=== PATIENT | male | born 1990 | race American Indian/Alaskan Native ===

== ENCOUNTER 2017-03-25 09:39 | Emergency (ER) | payer SELFPAY ==
--- NOTE | 2017-03-25 10:12 | Emergency Department Report ---
Chief Complaint: Extremity Injury, Lower Stated Complaint: SWOLLEN LEGS AND FEET Time Seen by Provider: 03/25/17 10:09 - HPI History of Present Illness: PT c/o leg edema x 6 months. PT states he noticed the swelling in his R leg first and now his left leg is swollen. - ROS Review of Systems: - sob - cp - Exam Physical Exam: obese male steady gait ble edema noted MSE screening note: Focused history and physical exam performed. Due to findings the following was ordered: labs ED Disposition for MSE Condition: Stable
[2017-03-25 10:26] LABS: Basophils % (Auto) 0.8 % (0.0-1.8); Eosinophils % (Auto) 3.6 % (0.0-4.3); Hematocrit 39.7 % (35.5-45.6); Hemoglobin 12.5 gm/dl (11.8-15.2); Mean Corpuscular HGB Conc 32 % (32-34); Mean Corpuscular Volume 79 fl (84-94); Platelet Count 267 K/mm3 (140-440); Red Cell Distribution Width 14.1 % (13.2-15.2); White Blood Count 5.6 K/mm3 (4.5-11.0)
[2017-03-25 10:29] LABS: Mean Corpuscular Hemoglobin 25 pg (28-32)
[2017-03-25 10:46] LABS: Alanine Aminotransferase 33 units/L (7-56); Albumin 3.9 g/dL (3.9-5); Albumin/Globulin Ratio 1.1 %; Alkaline Phosphatase 71 units/L (35-129); Anion Gap 15 mmol/L; BUN/Creatinine Ratio 8.18; Blood Urea Nitrogen 9 mg/dL (9-20); Calcium 8.8 mg/dL (8.4-10.2); Carbon Dioxide 28 mmol/L (22-30); Glucose 102 mg/dL (75-100); Sodium 142 mmol/L (137-145); Total Protein 7.5 g/dL (6.3-8.2)
--- NOTE | 2017-03-25 11:59 | Emergency Department Report ---
ED General Adult HPI - General Chief complaint: Extremity Injury, Lower Stated complaint: SWOLLEN LEGS AND FEET Time Seen by Provider: 03/25/17 10:09 Source: patient Mode of arrival: Ambulatory Limitations: No Limitations - History of Present Illness Initial comments: The patient complains of bilateral leg swelling since at least October. Apparently he has been working night shifts and his legs have recently become more tight. He does not specifically complain of calf or thigh pain just generalized weakness due to the swelling. He denies any shortness of breath. On my encounter. He was found sleeping remarkably without sleep apnea. He is morbidly obese. He denies any prior history of diabetes or hypertension. However it has been years since he has been to a physician or have his blood pressure measured. -: month(s) Location: lower extremity Radiation: non-radiation Severity scale (0 -10): 3 Quality: other (tightness) Consistency: constant Improves with: none Worsens with: none Associated Symptoms: denies other symptoms Treatments Prior to Arrival: none - Related Data Previous Rx's Medication Instructions Recorded Last Taken Type Lisinopril/Hydrochlorothiazide 1 tab PO QDAY #30 tablet 03/25/17 Unknown Rx [Zestoretic 10-12.5 mg] Allergies Allergy/AdvReac Type Severity Reaction Status Date / Time No Known Allergies Allergy Verified 03/25/17 10:14 ED Review of Systems ROS: Stated complaint: SWOLLEN LEGS AND FEET Other details as noted in HPI Constitutional: denies: chills, fever Eyes: denies: eye pain, eye discharge, vision change ENT: denies: ear pain, throat pain Respiratory: denies: cough, shortness of breath, wheezing Cardiovascular: edema. denies: chest pain, palpitations Endocrine: no symptoms reported Gastrointestinal: denies: abdominal pain, nausea, diarrhea Genitourinary: denies: urgency, dysuria Musculoskeletal: denies: back pain, joint swelling, arthralgia Skin: denies: rash, lesions Neurological: denies: headache, weakness, paresthesias Psychiatric: denies: anxiety, depression Hematological/Lymphatic: denies: easy bleeding, easy bruising ED Past Medical Hx - Past Medical History Previous Medical History?: No - Surgical History Past Surgical History?: No - Social History Smoking Status: Never Smoker Substance Use Type: None - Medications Home Medications: Home Medications Medication Instructions Recorded Confirmed Last Taken Type Lisinopril/Hydrochlorothiazide 1 tab PO QDAY #30 tablet 03/25/17 Unknown Rx [Zestoretic 10-12.5 mg] ED Physical Exam - General Limitations: Physical Limitation General appearance: alert, in no apparent distress - Head Head exam: Present: atraumatic, normocephalic - Eye Eye exam: Present: normal appearance, PERRL, EOMI. Absent: scleral icterus - ENT ENT exam: Present: mucous membranes moist - Neck Neck exam: Present: normal inspection - Respiratory Respiratory exam: Present: normal lung sounds bilaterally. Absent: respiratory distress - Cardiovascular Cardiovascular Exam: Present: regular rate, normal rhythm. Absent: systolic murmur, diastolic murmur, rubs, gallop - GI/Abdominal GI/Abdominal exam: Present: soft, normal bowel sounds. Absent: distended, tenderness, guarding, rebound - Rectal Rectal exam: Present: deferred - Extremities Exam Extremities exam: Present: normal inspection, other (3+ calf and pedal edema to the knees essentially bilaterally). Absent: calf tenderness - Back Exam Back exam: Present: normal inspection - Neurological Exam Neurological exam: Present: alert, oriented X3, CN II-XII intact. Absent: motor sensory deficit - Psychiatric Psychiatric exam: Present: normal affect, normal mood - Skin Skin exam: Present: warm, dry, intact, normal color. Absent: rash ED Course Vital Signs 03/25/17 03/25/17 10:11 11:33 Temperature 98.4 F Pulse Rate 104 H 88 Respiratory 18 20 Rate Blood Pressure 179/104 Blood Pressure 162/89 [Right] O2 Sat by Pulse 100 94 Oximetry ED Medical Decision Making - Lab Data Result diagrams: 03/25/17 10:17 03/25/17 10:17 Laboratory Results - last 24 hr 03/25/17 03/25/17 10:17 10:17 WBC 5.6 RBC 5.00 Hgb 12.5 Hct 39.7 MCV 79 L MCH 25 L MCHC 32 RDW 14.1 Plt Count 267 Lymph % (Auto) 28.8 [place] % (Auto) 8.4 H Eos % (Auto) 3.6 Baso % (Auto) 0.8 Lymph # 1.6 [place] # 0.5 Eos # 0.2 Baso # 0.0 Seg Neutrophils % 58.4 Seg Neutrophils # 3.3 Sodium 142 Potassium 4.0 Chloride 103.0 Carbon Dioxide 28 Anion Gap 15 BUN 9 Creatinine 1.1 Estimated GFR > 60 BUN/Creatinine Ratio 8.18 Glucose 102 H Calcium 8.8 Total Bilirubin 0.30 AST 28 ALT 33 Alkaline Phosphatase 71 NT-Pro-B Natriuret Pep 10.69 Total Protein 7.5 Albumin 3.9 Albumin/Globulin Ratio 1.1 - Radiology Data interpreted by me: VASCULAR LAB PRELIMINARY REPORT BLE VENOUS DOPPLER COMPLETED NO EVIDENCE OF DVT/SVT NOTED IN VESSELS/SEGMENTS VISUALIZED VERY LIMITED CALF VISUALIZATION DUE TO PT HABITUS AND EDEMA Critical care attestation.: If time is entered above; I have spent that time in minutes in the direct care of this critically ill patient, excluding procedure time. ED Disposition Clinical Impression: Leg edema Hypertension Qualifiers: Hypertension type: essential hypertension Qualified Code(s): I10 - Essential ( primary) hypertension Morbid obesity Qualifiers: Obesity type: due to excess calories Qualified Code(s): E66.01 - Morbid (severe ) obesity due to excess calories Disposition: TO HOME OR SELFCARE Is pt being admited?: No Does the pt Need Aspirin: No Condition: Stable Instructions: Hypertension (ED), Leg Edema (ED) Additional Instructions: Follow-up with primary care provider is really essential. Rx as directed for your hypertension and they will likely help leg swelling. Return any further symptoms thrush shortness of breath or worsening swelling. Prescriptions: Lisinopril/Hydrochlorothiazide [Zestoretic 10-12.5 mg] 1 tab PO QDAY #30 tablet Referrals: AKILA FABIAN MD [Primary Care Provider] - 3-5 Days [facility] [Provider Group] - 3-5 Days AUSTIN ALVARADO MD [Referring] - 3-5 Days Time of Disposition: 13:05
[2017-03-25 13:23] VITALS: BP 187/92
== END 2017-03-25 13:22 | disposition home or self-care (01) ==
LOC: ED 09:39
DX: R60.0 Localized edema (principal); I10 Essential (primary) hypertension; E66.01 Morbid (severe) obesity due to excess calories
CPT/HCPCS: 36415; 80053; 83880; 85025; 93970; 99284

== ENCOUNTER 2017-09-02 14:32 | Emergency (ER) | payer OTHER ==
[2017-09-02 14:45] VITALS: BP 191/114
--- NOTE | 2017-09-02 15:00 | Emergency Department Report ---
Chief Complaint: Syncope Stated Complaint: SYNCOPE - HPI History of Present Illness: This 27-year-old male nontoxic, well nourished in appearance, no acute signs of distress presents to the ED with c/o of headache, bilateral hip pain status post syncopal episode that occurred this morning. Initially he was cooking stove and lost consciousness and fell his head and is complaining of headache and bilateral hip pain. Phone number was currently present and stated patient has been down for about 2-3 minutes. Patient denies any dizziness, fever, chills, stiff neck, other extremity pain, nausea, vomiting, blurry vision, chest pain or shortness of breath. Denies hemoptysis. Denies any calf pain or tenderness. Denies recent travels, low chloride, or recent hospital stays. - Exam Vital Signs: Vital Signs 09/02/17 14:41 Temperature 97.7 F Pulse Rate 81 Respiratory 22 Rate Blood Pressure 191/114 O2 Sat by Pulse 97 Oximetry Physical Exam: GENERAL: The patient is a well-developed, well-nourished female in no apparent distress. Patient is alert and acting appropriately for age. Alert and oriented 3, no apparent distress, normal gait, atraumatic. LUNGS: Clear to auscultation. Non labor breathing. No intercostal retractions. Symmetrical with respiration, no wheezing, no rales, or crackles. HEART: Regular rate and rhythm without murmur, rubs or gallops. No reproducible. S1, S2 present, regular rate and rhythm without murmur, no rubs, no gallops. EXTREMITIES: Bilateral tenderness to the hips. Without any cyanosis, clubbing, rash, lesions or edema. Peripheral pulses intact. Capillary refill less than 2 seconds. Full range of motion bilaterally. NEUROLOGIC: Cranial nerves II through XII are grossly intact. Alert and oriented x 3. Normal gait. Symmetrical strength and sensation. Reflexes 2+ throughout. Cerebellar testing normal. GCS score of 15. MSE screening note: Focused history and physical exam performed. Due to findings the following was ordered: 1- This initial assessment/diagnostic orders/clinical plan/ treatment(s) is/are subject to change based on pt's health status, clinical progression and re- assessment by fellow clinical providers in the ED. Further treatment and workup at subsequent clinical provers discretion. Patient/guardians urged not to elope from ED as their condition may be serious if not clinically assessed and managed. 2-chest x-ray, EKG, CT head/brain without contrast 3-CBC, CMP, troponin 4-orthostatic vital signs ED Disposition for MSE Condition: Stable
[2017-09-02 15:24] LABS: Basophils % (Auto) 1.3 % (0.0-1.8); Eosinophils % (Auto) 1.8 % (0.0-4.3); Mean Corpuscular HGB Conc 31 % (32-34); Mean Corpuscular Volume 78 fl (84-94); Platelet Count 281 K/mm3 (140-440); Red Blood Count 5.17 M/mm3 (3.65-5.03); Red Cell Distribution Width 15.4 % (13.2-15.2); White Blood Count 5.9 K/mm3 (4.5-11.0)
[2017-09-02 15:25] LABS: Hemoglobin 12.5 gm/dl (11.8-15.2)
[2017-09-02 15:26] LABS: Hematocrit 40.3 % (35.5-45.6); Mean Corpuscular Hemoglobin 24 pg (28-32)
--- NOTE | 2017-09-02 16:30 | Cat Scan Report ---
FINAL REPORT PROCEDURE: CT HEAD/BRAIN WO CON TECHNIQUE: Computerized tomography of the head was performed without contrast material. HISTORY: syncope fall headache COMPARISON: No prior studies are available for comparison. FINDINGS: Brain: Brain density appears normal. No evidence of intracranial hemorrhage. No parenchymal hemorrhage, mass lesions or mass effect are seen. No abnormal extraxial fluid collects or masses are seen. Ventricles: Ventricles are normal size and are midline. Bone Windows: No evidence of skull fracture. Paranasal sinuses: Moderate mucosal thickening visualized in the left side of the sphenoid sinus. Moderate patchy mucosal disease seen in several of the posterior ethmoid air cells on the left. Visualized portions of the paranasal sinuses otherwise appear clear. Mastoid air cells: Clear IMPRESSION: Negative unenhanced CT of the brain. Paranasal sinus disease as described. Please see above comments. No other abnormalities are identified.
[2017-09-02 16:37] LABS: Alanine Aminotransferase 34 units/L (7-56); Albumin/Globulin Ratio 1.1 %; Alkaline Phosphatase 62 units/L (35-129); Anion Gap 18 mmol/L; BUN/Creatinine Ratio 9; Blood Urea Nitrogen 11 mg/dL (9-20); Calcium 8.8 mg/dL (8.4-10.2); Carbon Dioxide 27 mmol/L (22-30); Chloride 97.9 mmol/L (98-107); Glucose 77 mg/dL (75-100); Potassium 3.8 mmol/L (3.6-5.0); Sodium 139 mmol/L (137-145); Total Protein 7.8 g/dL (6.3-8.2)
--- NOTE | 2017-09-03 10:21 | XRay Report ---
CHEST 2 VIEWS INDICATION: Syncope, fall, chest pain. COMPARISON: None similar. FINDINGS: Frontal and lateral chest radiographs somewhat limited due to patient's body habitus, though demonstrate normal cardiomediastinal silhouette and clear lungs, given the inspiration. Right hemidiaphragm slightly elevated anteriorly. Intact bones. CONCLUSION: No acute chest process, as described. Thank you for the opportunity to participate in this patient's care.
--- NOTE | 2017-09-03 10:22 | XRay Report ---
BILATERAL HIP RADIOGRAPHS WITH PELVIS INDICATION: Loss of consciousness, fall, chest and hip pain. COMPARISON: None similar. FINDINGS: An AP pelvic radiograph with frog-leg projection of bilateral hips demonstrate normal femoral head contours bilaterally. Imaged bilateral SI and hip joints appear intact. Normal imaged lower lumbar spine. Nonobstructive bowel gas pattern. CONCLUSION: No acute radiographic abnormality, as described. Thank you for the opportunity to participate in this patient's care.
== END 2017-09-03 01:00 | disposition left against medical advice (07) ==
LOC: ED 14:32
DX: R55 Syncope and collapse (principal); Z53.21 Procedure and treatment not carried out due to patient leaving prior to being seen by health care provider
CPT/HCPCS: 36415; 70450; 71020; 73521; 80053; 84484; 85025; 93005; 93010

== ENCOUNTER 2021-04-20 19:28 | Emergency (ER) | payer SELFPAY ==
--- NOTE | 2021-04-20 22:28 | Emergency Department Report ---
ED General Adult HPI - General Chief complaint: Extremity Injury, Lower Stated complaint: LEFT LEG BLEED Time Seen by Provider: 04/20/21 22:15 Source: patient Mode of arrival: Ambulatory Limitations: No Limitations - History of Present Illness Initial comments: Patient is a 30-year-old male who presents emergency room with complaints of a left lower extremity arterial bleed. Patient states the bleeding started 1 hour ago. Patient states the bleeding is in the upper lower extremity just below the lateral left knee. Patient states that he has tried direct pressure and even called EMS to assist him in bandaging and the bleeding will stop. Patient states it is pulsatile and shoots across the room. Patient denies pain in the lower extremity. Patient denies trauma. Patient denies fall. Patient denies chest pain or shortness of breath. Patient denies fever and chills. Patient states he has a past medical history of hypertension, DVT and PE. Patient states he is taking torsemide for his blood pressure and Eliquis for the blood clots. Patient states he is compliant with both. Patient states his blood pressure is still high and his primary care is currently trying to slowly bring down his blood pressure. Patient states that he has an open wound inferior aspect of his left lower extremity just superior to the ankle. Patient states that wound has been there for many months. Patient states he is seeing wound care for but has not seen wound care for 2 months. Patient states about 3 or 4 days ago the wound bed started getting larger and developed a purulent discharge. Patient denies recent travel. Patient denies recent international travel. Patient denies exposure to the novel coronavirus. Patient denies sick contacts. Patient denies fever and chills. Patient denies cough. Patient denies diarrhea. Patient denies coming in contact with anybody with symptoms of the novel coronavirus. -: Sudden, hour(s), This evening Location: left, lower extremity Consistency: constant Improves with: immobilization, rest, other (Direct pressure) Worsens with: movement Associated Symptoms: denies other symptoms. denies: confusion, chest pain, cough, diaphoresis, fever/chills, headaches, loss of appetite, malaise, nausea/vomiting, rash, seizure, shortness of breath, syncope, weakness Treatments Prior to Arrival: other (Bandages) - Related Data Previous Rx's Medication Instructions Recorded Last Taken Type Losartan Potassium 100 mg PO DAILY 30 Days #30 tablet 04/21/21 Unknown Rx Sulfamethoxazole/Trimethoprim 1 each PO BID 10 Days #20 tablet 04/21/21 Unknown Rx [Bactrim DS TAB] Allergies Allergy/AdvReac Type Severity Reaction Status Date / Time No Known Allergies Allergy Verified 09/02/17 14:41 ED Review of Systems ROS: Stated complaint: LEFT LEG BLEED Other details as noted in HPI Constitutional: denies: chills, fever Eyes: denies: eye pain, eye discharge, vision change ENT: denies: ear pain, throat pain Respiratory: denies: cough, shortness of breath, wheezing Cardiovascular: denies: chest pain, palpitations Endocrine: no symptoms reported Gastrointestinal: denies: abdominal pain, nausea, diarrhea Genitourinary: denies: urgency, dysuria Musculoskeletal: denies: back pain, joint swelling, arthralgia Skin: denies: rash, lesions Neurological: denies: headache, weakness, paresthesias Psychiatric: denies: anxiety, depression Hematological/Lymphatic: denies: easy bleeding, easy bruising ED Past Medical Hx - Past Medical History Hx Hypertension: Yes Hx Congestive Heart Failure: Yes Hx Renal Disease: Yes Additional medical history: Bilateral Pulmonary edema - Social History Smoking Status: Never Smoker Substance Use Type: None - Medications Home Medications: Home Medications Medication Instructions Recorded Confirmed Last Taken Type Losartan Potassium 100 mg PO DAILY 30 Days #30 tablet 04/21/21 Unknown Rx Sulfamethoxazole/Trimethoprim 1 each PO BID 10 Days #20 tablet 04/21/21 Unknown Rx [Bactrim DS TAB] ED Physical Exam - General Limitations: No Limitations General appearance: alert, in no apparent distress - Head Head exam: Present: atraumatic, normocephalic - Eye Eye exam: Present: normal appearance - ENT ENT exam: Present: mucous membranes moist - Neck Neck exam: Present: normal inspection - Respiratory Respiratory exam: Present: normal lung sounds bilaterally. Absent: respiratory distress - Cardiovascular Cardiovascular Exam: Present: regular rate, normal rhythm. Absent: systolic murmur, diastolic murmur, rubs, gallop - GI/Abdominal GI/Abdominal exam: Present: soft, normal bowel sounds - Rectal Rectal exam: Present: deferred - Extremities Exam Extremities exam: Present: full ROM, pedal edema, other (Open wound noted to the distal medial aspect of the lower extremity just superior to the ankle. A purulent discharge and cellulitis noted. The patient has a bandage to the left lower extremity just below the left knee. Bandage was removed and a pulsatile bleed noted.). Absent: tenderness, calf tenderness - Back Exam Back exam: Present: normal inspection - Neurological Exam Neurological exam: Present: alert, oriented X3 - Psychiatric Psychiatric exam: Present: normal affect, normal mood - Skin Skin exam: Present: warm, dry, intact, normal color. Absent: rash ED Course Vital Signs 04/20/21 20:15 Temperature 98.7 F Pulse Rate 87 Respiratory 16 Rate Blood Pressure 200/140 O2 Sat by Pulse 99 Oximetry - Reevaluation(s) Reevaluation #1: I remove the bandage from the patient left lower extremity high-pressure stream bleed was noted. Bleeding is not pulsatile. Sterile bandage reapplied and secured with Coban. Bleeding was not controlled by direct pressure. Soon as the previous dressing was removed, the bleeding started again. The gauze and Naresh was saturated with blood. 04/20/21 22:30 Reevaluation #2: I elevated the patient's leg and the patient's varicose vein continued to bleed. I then placed superficial dissolvable stitches in site and the bleeding was controlled. See procedure note. Patient blood pressure still high. Patient given 50 mg losartan. 04/21/21 00:34 Reevaluation #3: Patient's blood pressure has improved. Bleeding is still controlled. No active bleeding noted. I discussed all results and clinical findings with patient. I discussed plan of care with patient. Patient agrees with plan of care. Patient is stable for discharge. Patient will be discharged home. Patient given discharge instructions. Patient voiced understanding of discharge instructions. 04/21/21 00:54 - Consultations Consultation #1: I discussed the case with Dr. Johnson, vascular surgery. Dr. Longoria recommends direct pressure elevate the leg and that does not work place a. Full states and if that does not work the bleeding continues to place thrombin matrix directly onto the wound. 04/20/21 22:52 - Procedure Description Procedures done: Clinical indication: Persistent varicose bleed. Bleeding continued even after direct pressure. The site was cleaned and draped in a sterile fashion. The site was injected with 1% treatment counselor with epi. 2 mL of treatment counselor with epi placed. A [id number] stitch was placed. Bleeding was controlled. A sterile dressing was applied. No further bleeding noted. ED Medical Decision Making - Lab Data Result diagrams: 04/20/21 22:47 04/20/21 22:47 - Medical Decision Making Patient is a 30-year-old male that presents emergency room for bleeding of his left lower extremity from a varicose vein. Patient also found to have an open wound with a wound infection. Patient had labs done which were essentially unremarkable. Patient's clotting studies are normal. I discussed the case with neurosurgery and the recommendations were received. Results varicose vein continue to bleed even after direct pressure and elevation. I then placed a [id number] superficial stitch into the varicose vein and the bleeding was controlled. A sterile dressing was applied. Patient was monitored for several minutes after the procedure and had no bleeding. Patient blood pressure was significantly elevated while in ER. Patient given 50 mg of losartan his blood pressure improved to an acceptable level to be discharged home. Patient given prescription for losartan. Patient is already taking torsemide. Patient instructed to continue his torsemide. Patient given Bactrim for the wound infection on his left lower extremity. Critical care time documented due to the multiple reassessments, prolonged time at the bedside, interpretation of diagnostics and labs. Patient will be discharged home. Patient does not require inpatient or further emergency medical services. Patient will be referred to a vascular surgeon to help him manage varicosities in his lower extremities. Patient also has history of DVTs and PE and is currently on Eliquis and the patient was instructed to continue his Eliquis. - Differential Diagnosis Cellulitis, varicose vein hemorrhage, bleeding, Critical Care Time: Yes Critical care time in (mins) excluding proc time.: 35 Critical care attestation.: If time is entered above; I have spent that time in minutes in the direct care of this critically ill patient, excluding procedure time. Critical Care Time: 35 minutes ED Disposition Clinical Impression: Hypertensive emergency, Bleeding from varicose vein Lower extremity cellulitis Qualifiers: Laterality: left Qualified Code(s): L03.116 - Cellulitis of left lower limb Hypertension Qualifiers: Hypertension type: primary hypertension Qualified Code(s): I10 - Essential (primary) hypertension Disposition: DC-01 TO HOME OR SELFCARE Is pt being admited?: No Does the pt Need Aspirin: No Condition: Stable Instructions: Varicose Veins, Cellulitis, Adult, Surgical Procedures for Varicose Veins, Care After, Preventing Hypertension, Nonsurgical Procedures for Varicose Veins, Care After, Managing Your Hypertension, Hypertension (ED) Additional Instructions: Patient to follow-up with primary care in 2 to 3 days. Patient to follow-up with vascular surgery and wound care in 2 to 3 days. Patient to rest. Patient to increase water. Patient to avoid strenuous exercise or heavy lifting until cleared by vascular surgery and primary care.. Patient to take Tylenol as needed for pain. Patient to take meds as directed. Patient to monitor blood pressure at home. Patient to keep a blood pressure log. Patient to take blood pressure log to all follow-up points. Patient to eat a low-salt and heart healthy diet. Patient to return to the ER if condition worsens, changes or new symptoms arise. Prescriptions: Sulfamethoxazole/Trimethoprim [Bactrim DS TAB] 1 each PO BID 10 Days #20 tablet Losartan Potassium 100 mg PO DAILY 30 Days #30 tablet Referrals: CINDY GANDHI MD [Staff Physician] - 2-3 Days NICKI BRANTLEY MD [Staff Physician] - 2-3 Days Time of Disposition: 00:57
[2021-04-20 23:30] LABS: Basophils # (Auto) 0.1 K/mm3 (0.0-0.1); Eosinophils # (Auto) 0.2 K/mm3 (0.0-0.4); Eosinophils % (Auto) 3.1 % (0.0-4.3); Hematocrit 38.7 % (35.5-45.6); Hemoglobin 12.3 gm/dl (11.8-15.2); Mean Corpuscular HGB Conc 32 % (32-34); Mean Corpuscular Volume 78 fl (84-94); Monocytes # (Auto) 0.5 K/mm3 (0.0-0.8); Monocytes % (Auto) 9.2 % (0.0-7.3); Platelet Count 239 K/mm3 (140-440); Red Blood Count 4.97 M/mm3 (3.65-5.03)
[2021-04-20 23:31] LABS: INR 0.99 (0.87-1.13)
[2021-04-20 23:32] LABS: Partial Thromboplastin Time 22.4 Sec. (24.2-36.6)
[2021-04-20 23:34] LABS: Alanine Aminotransferase 23 units/L (7-56); Albumin 3.9 g/dL (3.9-5); BUN/Creatinine Ratio 8; Blood Urea Nitrogen 10 mg/dL (9-20); Calcium 8.8 mg/dL (8.4-10.2); Hemolysis Index 64
[2021-04-20] MEDS ORDERED: LOSARTAN 50 MG TAB PO ONE (23:59)
[2021-04-21] MEDS ORDERED: LIDOCAINE 1%/EPINEPHRINE 1:100,000 VIAL (20 ML) INFILTRATI NR (00:15)
[2021-04-21 01:55] VITALS: BP 179/90
== END 2021-04-21 01:53 | disposition home or self-care (01) ==
LOC: ED 19:28
DX: I16.1 Hypertensive emergency (principal); L03.116 Cellulitis of left lower limb; I83.892 Varicose veins of left lower extremity with other complications; I11.0 Hypertensive heart disease with heart failure; I50.9 Heart failure, unspecified; Z79.899 Other long term (current) drug therapy
CPT/HCPCS: 36415; 80053; 85025; 85610; 85730